=== PATIENT | female | born 1985 | race Hispanic/Latino ===

== ENCOUNTER 2017-02-20 16:45 | Emergency (ER) | payer SELFPAY ==
[2017-02-20 18:01] VITALS: BP 123/71
[2017-02-20] MEDS ORDERED: MOTRIN PO ONE (18:42)
--- NOTE | 2017-02-20 18:43 | Emergency Department Report ---
ED Lower Extremity HPI - General Chief Complaint: Extremity Injury, Lower Stated Complaint: BROKEN RT TOE Time Seen by Provider: 02/20/17 18:35 Source: patient Mode of arrival: Ambulatory Limitations: No Limitations - History of Present Illness Initial Comments: 31-year-old female past medical history none presents with complaint of toe pain status post stubbing toe against the mattress frame today. Patient has no lacerations is able to ambulate on foot states that she has pain in her distal left third and fourth toes. Slight visible swelling and ecchymosis at tips of toes. MD Complaint: other (toe injury) Injury: Toes: Left (blunt injury to toes 3 and 4) Type of Injury: blunt Place: home Severity: moderate Severity scale (0 -10): 5 Improves With: immobilization Worsens With: movement, palpation Context: direct blow Associated Symptoms: swelling, numbness, ambulatory Treatments Prior to Arrival: cold therapy, NSAIDS - Related Data Previous Rx's Medication Instructions Recorded Last Taken Type Naproxen [Naprosyn TAB] 500 mg PO BID PRN #20 tablet 02/20/17 Unknown Rx Allergies Allergy/AdvReac Type Severity Reaction Status Date / Time Penicillins AdvReac Hives Verified 02/20/17 17:56 ED Review of Systems ROS: Stated complaint: BROKEN RT TOE Other details as noted in HPI Constitutional: denies: chills, fever Eyes: denies: eye pain, eye discharge, vision change ENT: denies: ear pain, throat pain Respiratory: denies: cough, shortness of breath, wheezing Cardiovascular: denies: chest pain, palpitations Endocrine: no symptoms reported Gastrointestinal: denies: abdominal pain, nausea, diarrhea Genitourinary: denies: urgency, dysuria, discharge Musculoskeletal: denies: back pain, joint swelling, arthralgia Skin: denies: rash, lesions Neurological: denies: headache, weakness, paresthesias Psychiatric: denies: anxiety, depression Hematological/Lymphatic: denies: easy bleeding, easy bruising ED Past Medical Hx - Past Medical History Hx Asthma: Yes - Surgical History Past Surgical History?: No - Social History Smoking Status: Never Smoker Substance Use Type: None - Medications Home Medications: Home Medications Medication Instructions Recorded Confirmed Last Taken Type Naproxen [Naprosyn TAB] 500 mg PO BID PRN #20 tablet 02/20/17 Unknown Rx ED Physical Exam - General Limitations: No Limitations General appearance: alert, in no apparent distress - Head Head exam: Present: atraumatic, normocephalic - Eye Eye exam: Present: normal appearance, PERRL, EOMI - ENT ENT exam: Present: mucous membranes moist - Neck Neck exam: Present: normal inspection - Respiratory Respiratory exam: Present: normal lung sounds bilaterally. Absent: respiratory distress - Cardiovascular Cardiovascular Exam: Present: regular rate, normal rhythm. Absent: systolic murmur, diastolic murmur, rubs, gallop - GI/Abdominal GI/Abdominal exam: Present: soft, normal bowel sounds - Extremities Exam Extremities exam: Present: normal inspection - Expanded Lower Extremity Exam Left Hip exam: Present: normal inspection, full ROM Upper Leg exam: Present: normal inspection, full ROM Knee exam: Present: normal inspection, full ROM Lower Leg exam: Present: normal inspection, full ROM Ankle exam: Present: normal inspection, full ROM Foot/Toe exam: Present: full ROM, tenderness, swelling (very mild swelling and tenderness with slight ecchymosis tips of left third and fourth toes) Gait: Positive: observed and normal 1 - Mild pain on palpation here - Back Exam Back exam: Present: normal inspection - Neurological Exam Neurological exam: Present: alert, oriented X3, CN II-XII intact, normal gait - Psychiatric Psychiatric exam: Present: normal affect, normal mood - Skin Skin exam: Present: warm, dry, intact, normal color. Absent: rash ED Course Vital Signs 02/20/17 17:58 Temperature 97.7 F Pulse Rate 75 Respiratory 17 Rate Blood Pressure 123/71 O2 Sat by Pulse 100 Oximetry ED Lower Extremity MDM - Medical Decision Making A/P: Toe contusion 1- X-ray report shows no fractures. will treat based on clinical symptoms we'll provide with a shoe podiatry referral will taylor tape toes, RICE therapy and naproxen when necessary 2-pt is fully ambulatory without any difficulty 3- distal capillary refill and sensation is fully intact patient is able to range her toes. Critical care attestation.: If time is entered above; I have spent that time in minutes in the direct care of this critically ill patient, excluding procedure time. ED Disposition Clinical Impression: Contusion of toe of right foot Qualifiers: Encounter type: initial encounter Toe: lesser toe Damage to nail status: without damage Qualified Code(s): S90.121A - Contusion of right lesser toe(s) without damage to nail, initial encounter Disposition: DISCHARGED TO HOME OR SELFCARE Is pt being admited?: No Does the pt Need Aspirin: No Condition: Stable Instructions: Toe Fracture (ED), Contusion in Adults (ED), RICE Therapy (ED) Prescriptions: Naproxen [Naprosyn TAB] 500 mg PO BID PRN #20 tablet PRN Reason: Pain Referrals: CHERRY SWARTZ DPM [Staff Physician] - 3-5 Days Forms: Work/School Release Form(ED) Time of Disposition: 19:23
--- NOTE | 2017-02-20 19:30 | XRay Report ---
FINAL REPORT PROCEDURE: Left toe series TECHNIQUE: LEFT 3rd and 4th toe radiographs, including AP, oblique and lateral views. HISTORY: ? toe fracture 3rd and 4th toes? COMPARISON: No prior studies are available for comparison. FINDINGS: Fracture(s) and/or Dislocation(s): None. Joint space(s): Normal. Soft tissues: Normal. Bone mineralization: Normal. Foreign bodies: None. IMPRESSION: Negative exam. No evidence of fracture or dislocation.
== END 2017-02-20 19:44 | disposition home or self-care (01) ==
LOC: ED 16:45
DX: S90.121A Contusion of right lesser toe(s) without damage to nail, initial encounter (principal); J45.909 Unspecified asthma, uncomplicated; X58.XXXA Exposure to other specified factors, initial encounter; Y93.9 Activity, unspecified; Y92.9 Unspecified place or not applicable; Y99.9 Unspecified external cause status
CPT/HCPCS: 99283